=== PATIENT | male | born 1985 | race Caucasian/White ===

== ENCOUNTER 2024-05-05 08:33 | Outpatient (CLI) | payer OTHER, SELFPAY | END 2024-05-05 08:34 | disposition home or self-care (01) | LOC: NFLDREF 05-06 08:27 | PROVIDERS: PCP Family Medicine; Visit Provider Family Medicine | DX: R53.83 Other fatigue (principal); Z13.228 Encounter for screening for other metabolic disorders; Z13.220 Encounter for screening for lipoid disorders; Z13.29 Encounter for screening for other suspected endocrine disorder | CPT/HCPCS: 80048; 80061; 84403; 84443 ==